=== PATIENT | female | born 2000 | race Caucasian/White ===

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

== ENCOUNTER 2018-01-14 18:29 | Emergency (ER) | payer MEDICAID ==
[2018-01-14 18:57] LABS: Bilirubin Negative (Negative); Blood, Urine Large (Negative); Glucose, Urine (Dipstick) Negative (Negative); Leukocyte Large (Negative); Nitrite Positive (Negative); Protein, Urine (Dipstick) 100 mg/dL (Neg-Trace); Specific Gravity, Urine 1.015 (1.005-1.030); Urobilinogen 0.2 mg/dL (0.2-1.0)
[2018-01-14 19:09] LABS: Bacteria/HPF 3+ HPF (None Seen); Clarity Hazy (Clear); Pregnancy Test - Urine (BHCG) Negative (Negative); Squamous Epithelial 0-3 HPF (0-3)
[2018-01-14 19:10] LABS: Pregu Control Background? CLEAR/WHITE (CLR/WHITE); Pregu Control Bar Appear? YES (CONTROL BAR); Specific Gravity 1.015 (1.002-1.036)
== END 2018-01-14 19:38 | disposition home or self-care (01) ==
LOC: NAV ERS 18:29
DX: N39.0 Urinary tract infection, site not specified (principal)
CPT/HCPCS: 81003; 81015; 81025; 99283

== ENCOUNTER 2018-01-30 20:32 | Emergency (ER) | payer MEDICAID, OTHER ==
[2018-01-30 21:10] LABS: Wet Prep Trichomonas Trichomonas Absent (None Seen)
[2018-01-30 21:11] LABS: Wet Prep Clue Cells Clue Cells Absent (None Seen); Wet Prep Spermatozoa 2nd Revie Agree with result (None Seen)
[2018-01-30] MEDS ORDERED: Fluconazole 100 MG TAB ONE (21:26)
[2018-01-31 23:06] LABS: Chlamydia by PCR Not Detected (NotDetected); GC by PCR Not Detected (NotDetected)
== END 2018-01-30 21:31 | disposition home or self-care (01) ==
LOC: NAV ERS 20:32
DX: B37.3 Candidiasis of vulva and vagina (principal)
CPT/HCPCS: 87210; 87491; 87591; 99283